=== PATIENT | male | born 1980 | race Caucasian/White ===

== ENCOUNTER 2020-04-14 17:33 | Inpatient (IN) ==
[2020-04-14 18:04] LABS: Bilirubin,Urine Negative (Negative); Blood,Urine Negative (Negative); Clarity,Urine Clear (Clear); Color,Urine Light-Yellow (Yellow); Glucose,Urine (UA) Normal (Normal); Ketones,Urine Negative (Negative); Leukocyte Esterase,Urine Negative (Negative); Nitrite,Urine Negative (Negative); PH,Urine 6.5 pH Units (5.0-8.0); Protein,Urine Negative (Neg-Trace); Urobilinogen,Urine Normal (Normal)
[2020-04-14 18:08] LABS: Basophils % 0.3 %; Eosinophils # 0.1 K/mcL (0.0-0.6); Eosinophils % 0.4 %; Hematocrit 50.3 % (37.5-50.1); Immature Granulocytes % 0.2 % (0-4); Lymphocytes # 2.1 K/mcL (0.6-4.6); Lymphocytes % 14.9 %; Mean Corpuscular HGB Conc 33.8 g/dL (31.6-35.5); Mean Corpuscular Hemoglobin 31.6 pg (28.0-33.3); Mean Corpuscular Volume 93.5 fL (83.0-100.0); Mean Platelet Volume 9.5 fL (9.4-12.4); Monocytes % 6.9 %; Neutrophils # 10.9 K/mcL (1.6-8.9); Platelet Count 190 K/mcL (140-400); Red Blood Count 5.38 M/mcL (4.19-5.50); Red Cell Distribution Width 12.5 % (11.5-14.5); Segmented Neutrophils % 77.3 %; White Blood Count 14.1 K/mcL (4.3-11.1)
[2020-04-14] MEDS ORDERED: Piperacillin/Tazobactam 3.375 GM in 0.9 % Sodium Chloride Mini Bag 100 ML IVPB ONE (18:25)
[2020-04-14 18:27] LABS: BUN/Creatinine Ratio 11 (6-26); Blood Urea Nitrogen 9 mg/dL (6-20); Calcium 9.3 mg/dL (8.6-10.3); Carbon Dioxide 27 mEq/L (23-29); Chloride 102 mEq/L (98-107); Glucose 114 mg/dL (70-105); Osmolality,Calculated 280 (280-300); Potassium 3.9 mEq/L (3.5-5.1); Sodium 135 mEq/L (136-145); eGFR For African Americans > 60 (> 60); eGFR For Non-African Americans > 60 (> 60)
[2020-04-14] MEDS ORDERED: Ketorolac 30 MG/ML VIAL IVP ONE (19:20)
[2020-04-14] MEDS ORDERED: Ondansetron 4 MG/2 ML VIAL IVP PRN (21:18)
[2020-04-14] MEDS ORDERED: Naloxone 0.4 MG/ML INJ IVP PRN (21:18)
[2020-04-14] MEDS: Ringers Solution, Lactated 1,000 ML IVC SCH (22:50)
[2020-04-14] MEDS: risperiDONE 0.25 MG TABLET PO SCH (23:03)
[2020-04-14] MEDS: Mirtazapine 15 MG TABLET PO SCH (23:04)
[2020-04-14] MEDS ORDERED: Acetaminophen IV 1,000 MG/100 ML INFUS..BTL IVPB PRN (23:51)
[2020-04-14] MEDS ORDERED: Ketorolac 30 MG/ML VIAL IVP PRN (23:51)
[2020-04-15] MEDS: Piperacillin/Tazobactam 3.375 GM in 0.9 % Sodium Chloride Mini Bag 100 ML IVPB SCH ×4 (01:03→23:32)
[2020-04-15 01:26] LABS: Basophils % 0.3 %; Eosinophils # 0.1 K/mcL (0.0-0.6); Eosinophils % 0.4 %; Hematocrit 48.3 % (37.5-50.1); Hemoglobin 16.3 g/dL (12.9-16.9); Immature Granulocytes % 0.3 % (0-4); Lymphocytes % 17.9 %; Mean Corpuscular HGB Conc 33.7 g/dL (31.6-35.5); Mean Corpuscular Hemoglobin 31.6 pg (28.0-33.3); Mean Corpuscular Volume 93.6 fL (83.0-100.0); Mean Platelet Volume 9.8 fL (9.4-12.4); Monocytes # 0.9 K/mcL (0.0-1.3); Monocytes % 7.8 %; Neutrophils # 8.3 K/mcL (1.6-8.9); Platelet Count 157 K/mcL (140-400); Red Blood Count 5.16 M/mcL (4.19-5.50); Red Cell Distribution Width 12.2 % (11.5-14.5); Segmented Neutrophils % 73.3 %; White Blood Count 11.3 K/mcL (4.3-11.1)
[2020-04-15 01:28] LABS: INR 1.2; Prothrombin Time 13.5 Seconds (9.4-12.1)
[2020-04-15 01:46] LABS: Alanine Aminotransferase 27 Units/L (7-52); Albumin 3.9 g/dL (3.5-5.7); Albumin/Globulin Ratio 1.2 (1.1-2.2); Alkaline Phosphatase 37 Units/L (34-104); Aspartate Amino Transferase 14 Units/L (13-39); BUN/Creatinine Ratio 11 (6-26); Bilirubin,Total 0.8 mg/dL (0.3-1.0); Blood Urea Nitrogen 10 mg/dL (6-20); Calcium 8.7 mg/dL (8.6-10.3); Carbon Dioxide 27 mEq/L (23-29); Chloride 103 mEq/L (98-107); Globulin 3.3 g/dL (2.4-3.5); Glucose 103 mg/dL (70-105); Magnesium 1.9 mg/dL (1.6-2.6); Osmolality,Calculated 285 (280-300); Potassium 3.8 mEq/L (3.5-5.1); Sodium 138 mEq/L (136-145); Total Protein 7.2 g/dL (6.4-8.9); eGFR For African Americans > 60 (> 60); eGFR For Non-African Americans > 60 (> 60)
[2020-04-15] MEDS ORDERED: *HR* Dextrose 50 % in Water (Vial) 50 ML VIAL IVP PRN (08:13)
[2020-04-15] MEDS ORDERED: Dextrose Gel 15 GM/37.5 ML TUBE PO PRN ×2 (08:13)
[2020-04-15] MEDS ORDERED: D5% in Water 1,000 ML IVC PRN (08:13)
[2020-04-15] MEDS: Ringers Solution, Lactated 1,000 ML IVC SCH ×3 (10:54→23:33)
[2020-04-15] MEDS: Insulin LISPRO 300 UNITS/3 ML VIAL SQ SCH ×3 (11:40→23:33)
[2020-04-15] MEDS: *HR* Heparin 5,000 UNIT/ML VIAL SQ SCH ×2 (15:39→21:03)
[2020-04-15] MEDS ORDERED: hydrOXYzine pamoate 25 MG CAPSULE PO PRN (17:40)
[2020-04-15] MEDS: risperiDONE 0.25 MG TABLET PO SCH (21:02)
[2020-04-15] MEDS: Mirtazapine 15 MG TABLET PO SCH (21:02)
[2020-04-16 05:14] LABS: Basophils % 0.4 %; Eosinophils # 0.2 K/mcL (0.0-0.6); Eosinophils % 2.3 %; Hematocrit 45.8 % (37.5-50.1); Hemoglobin 14.8 g/dL (12.9-16.9); Immature Granulocytes % 0.3 % (0-4); Lymphocytes # 2.1 K/mcL (0.6-4.6); Lymphocytes % 26.3 %; Mean Corpuscular HGB Conc 32.3 g/dL (31.6-35.5); Mean Corpuscular Hemoglobin 30.1 pg (28.0-33.3); Mean Corpuscular Volume 93.3 fL (83.0-100.0); Mean Platelet Volume 9.7 fL (9.4-12.4); Monocytes # 0.6 K/mcL (0.0-1.3); Monocytes % 7.9 %; Platelet Count 166 K/mcL (140-400); Red Blood Count 4.91 M/mcL (4.19-5.50); Red Cell Distribution Width 12.4 % (11.5-14.5); Segmented Neutrophils % 62.8 %
[2020-04-16] MEDS: Insulin LISPRO 300 UNITS/3 ML VIAL SQ SCH (05:17)
[2020-04-16] MEDS: *HR* Heparin 5,000 UNIT/ML VIAL SQ SCH ×3 (05:18→21:28)
[2020-04-16 05:30] LABS: BUN/Creatinine Ratio 13 (6-26); Blood Urea Nitrogen 11 mg/dL (6-20); Calcium 8.5 mg/dL (8.6-10.3); Carbon Dioxide 23 mEq/L (23-29); Chloride 107 mEq/L (98-107); Glucose 84 mg/dL (70-105); Osmolality,Calculated 285 (280-300); Phosphorous 2.5 mg/dL (2.7-4.5); Sodium 138 mEq/L (136-145); eGFR For African Americans > 60 (> 60); eGFR For Non-African Americans > 60 (> 60)
[2020-04-16] MEDS ORDERED: FLUoxetine 20 MG CAPSULE PO SCH (09:00)
[2020-04-16] MEDS: Piperacillin/Tazobactam 3.375 GM in 0.9 % Sodium Chloride Mini Bag 100 ML IVPB SCH ×2 (11:02→17:48)
[2020-04-16] MEDS ORDERED: Nicotine 21 MG PATCH.TD24 TD SCH (13:00)
[2020-04-16] MEDS ORDERED: Morphine Sulfate 2 MG/ML SYRINGE IVP ONE (20:09)
[2020-04-16] MEDS: Mirtazapine 15 MG TABLET PO SCH (20:58)
[2020-04-16] MEDS: risperiDONE 0.25 MG TABLET PO SCH (20:58)
[2020-04-16] MEDS ORDERED: *HR* OxyCODONE Immed Rel 5 MG TABLET PO PRN ×2 (22:25→22:57)
[2020-04-17] MEDS ORDERED: Morphine Sulfate 2 MG/ML SYRINGE IVP ONE (00:18)
[2020-04-17] MEDS ORDERED: 0.9 % Sodium Chloride 1,000 ML IVC SCH (00:45)
[2020-04-17] MEDS ORDERED: CefOXitin 1,000 MG VIAL ONE (01:09)
[2020-04-17] MEDS: Piperacillin/Tazobactam 3.375 GM in 0.9 % Sodium Chloride Mini Bag 100 ML IVPB SCH ×4 (01:23→23:30)
[2020-04-17] MEDS ORDERED: Lidocaine -MPF 2% 2 ML VIAL ONE (01:24)
[2020-04-17] MEDS ORDERED: *HR* FentaNYL (PF) 100 MCG/2 ML VIAL ONE (01:24)
[2020-04-17] MEDS ORDERED: *HR* Succinylcholine 200 MG/10 ML VIAL IVP ONE (01:24)
[2020-04-17] MEDS ORDERED: Lidocaine -MPF 4% 5 ML AMPUL ONE (01:24)
[2020-04-17] MEDS ORDERED: *HR* Rocuronium Bromide 50 MG/5 ML VIAL ONE (01:24)
[2020-04-17] MEDS ORDERED: *HR* Propofol 200 MG/20 ML VIAL IVP ONE (01:25)
[2020-04-17] MEDS ORDERED: *HR* Midazolam HCl 2 MG/2 ML VIAL ONE (01:25)
[2020-04-17] MEDS ORDERED: Dexamethasone 4 MG/ML VIAL ONE (01:29)
[2020-04-17] MEDS ORDERED: Ondansetron 4 MG/2 ML VIAL ONE (01:29)
[2020-04-17] MEDS ORDERED: *HR* Magnesium Sulfate 1 GM/2 ML VIAL ONE (01:30)
[2020-04-17] MEDS ORDERED: Acetaminophen IV 1,000 MG/100 ML INFUS..BTL IVPB ONE (01:32)
[2020-04-17] MEDS ORDERED: Famotidine 20 MG/2 ML VIAL ONE (01:56)
[2020-04-17] MEDS ORDERED: *HR* PHENYLEPHRINE 1,000 MCG/10 ML SYRINGE IVP ONE (02:25)
[2020-04-17] MEDS ORDERED: *HR* HYDROMORPHONE 2 MG/ML VIAL ONE (02:30)
[2020-04-17] MEDS ORDERED: *HR* Labetalol 20 MG/4 ML SYRINGE IVP PRN (02:52)
[2020-04-17] MEDS ORDERED: *HR* Promethazine 25 MG/ML VIAL IVP PRN (02:52)
[2020-04-17 02:54] LABS: Adenovirus Not Detected (Not Detect); Bordetella Pertussis Not Detected (Not Detect); Chlamydophila pneumoniae Not Detected (Not Detect); Coronavirus 229E Not Detected (Not Detect); Coronavirus HKU1 Not Detected (Not Detect); Coronavirus NL63 Not Detected (Not Detect); Coronavirus OC43 Not Detected (Not Detect); Human Metapneumovirus Not Detected (Not Detect); Human Rhinovirus/Enterovirus Not Detected (Not Detect); Influenza A Subtype 2009 H1 Not Detected (Not Detect); Influenza B Not Detected (Not Detect); Mycoplasma pneumoniae Not Detected (Not Detect); Parainfluenza Virus 1 Not Detected (Not Detect); Parainfluenza Virus 2 Not Detected (Not Detect); Parainfluenza Virus 3 Not Detected (Not Detect); Parainfluenza Virus 4 Not Detected (Not Detect); Respiratory Syncytial Virus Not Detected (Not Detect); SARS-CoV-2 Not Detected (Not Detect)
[2020-04-17] MEDS ORDERED: Ketorolac 30 MG/ML VIAL ONE (03:08)
[2020-04-17] MEDS ORDERED: Neostigmine Methylsulfate 3 MG/3 ML SYRINGE ONE (03:09)
[2020-04-17] MEDS: *HR* HYDROmorphone (PF) 1 MG/ML SYRINGE IVP PRN ×4 (04:18→05:36)
[2020-04-17] MEDS: *HR* Heparin 5,000 UNIT/ML VIAL SQ SCH ×3 (05:59→21:12)
[2020-04-17] MEDS ORDERED: Morphine Sulfate 2 MG/ML SYRINGE IVP PRN (06:51)
[2020-04-17] MEDS ORDERED: *HR* Dextrose 50 % in Water (Vial) 50 ML VIAL IVP PRN (06:51)
[2020-04-17] MEDS ORDERED: Dextrose Gel 15 GM/37.5 ML TUBE PO PRN ×2 (06:51)
[2020-04-17] MEDS ORDERED: Ondansetron 4 MG/2 ML VIAL IVP PRN (06:51)
[2020-04-17] MEDS ORDERED: D5% in Water 1,000 ML IVC PRN (06:51)
[2020-04-17] MEDS: 0.9 % Sodium Chloride 1,000 ML IVC SCH ×2 (07:00→21:06)
[2020-04-17] MEDS: Nicotine 21 MG PATCH.TD24 TD SCH (08:32)
[2020-04-17 09:02] LABS: Hematocrit 45.2 % (37.5-50.1); Hemoglobin 14.8 g/dL (12.9-16.9); Mean Corpuscular HGB Conc 32.7 g/dL (31.6-35.5); Mean Corpuscular Hemoglobin 30.3 pg (28.0-33.3); Mean Corpuscular Volume 92.6 fL (83.0-100.0); Mean Platelet Volume 9.4 fL (9.4-12.4); Platelet Count 211 K/mcL (140-400); Red Blood Count 4.88 M/mcL (4.19-5.50); Red Cell Distribution Width 12.7 % (11.5-14.5); White Blood Count 8.1 K/mcL (4.3-11.1)
[2020-04-17 09:17] LABS: BUN/Creatinine Ratio 16 (6-26); Blood Urea Nitrogen 18 mg/dL (6-20); Calcium 8.4 mg/dL (8.6-10.3); Carbon Dioxide 26 mEq/L (23-29); Chloride 105 mEq/L (98-107); Glucose 149 mg/dL (70-105); Magnesium 2.1 mg/dL (1.6-2.6); Osmolality,Calculated 291 (280-300); Phosphorous 4.5 mg/dL (2.7-4.5); Potassium 4.7 mEq/L (3.5-5.1); Sodium 138 mEq/L (136-145); eGFR For African Americans > 60 (> 60); eGFR For Non-African Americans > 60 (> 60)
[2020-04-17 09:30] LABS: Lymphocytes # 0.8 K/mcL (0.6-4.6); Neutrophils # 6.3 K/mcL (1.6-8.9); Platelet Estimate Normal (Normal)
[2020-04-17] MEDS: Ketorolac 30 MG/ML VIAL IVP PRN ×2 (11:36→18:18)
[2020-04-17] MEDS: Pantoprazole 40 MG VIAL IVP SCH (11:36)
[2020-04-17] MEDS ORDERED: *HR* LORazepam 2 MG/ML VIAL IVP ONE (21:36)
[2020-04-18 03:15] LABS: BUN/Creatinine Ratio 19 (6-26); Blood Urea Nitrogen 19 mg/dL (6-20); Calcium 8.2 mg/dL (8.6-10.3); Carbon Dioxide 29 mEq/L (23-29); Chloride 107 mEq/L (98-107); Glucose 121 mg/dL (70-105); Magnesium 2.3 mg/dL (1.6-2.6); Osmolality,Calculated 296 (280-300); Potassium 4.4 mEq/L (3.5-5.1); Sodium 141 mEq/L (136-145); eGFR For African Americans > 60 (> 60); eGFR For Non-African Americans > 60 (> 60)
[2020-04-18] MEDS: *HR* Heparin 5,000 UNIT/ML VIAL SQ SCH ×3 (05:03→20:53)
[2020-04-18] MEDS: Ketorolac 30 MG/ML VIAL IVP PRN ×3 (08:27→22:33)
[2020-04-18] MEDS: Pantoprazole 40 MG VIAL IVP SCH (09:15)
[2020-04-18] MEDS: Nicotine 21 MG PATCH.TD24 TD SCH (09:15)
[2020-04-18] MEDS: Piperacillin/Tazobactam 3.375 GM in 0.9 % Sodium Chloride Mini Bag 100 ML IVPB SCH ×3 (09:15→23:40)
[2020-04-18] MEDS: 0.9 % Sodium Chloride 1,000 ML IVC SCH (09:16)
[2020-04-18] MEDS ORDERED: hydrOXYzine pamoate 25 MG CAPSULE PO PRN (14:03)
[2020-04-18] MEDS: risperiDONE 0.25 MG TABLET PO SCH (20:53)
[2020-04-18] MEDS: Mirtazapine 15 MG TABLET PO SCH (20:53)
[2020-04-19] MEDS: *HR* Heparin 5,000 UNIT/ML VIAL SQ SCH ×3 (04:38→21:52)
[2020-04-19] MEDS: Nicotine 21 MG PATCH.TD24 TD SCH (08:10)
[2020-04-19] MEDS: Piperacillin/Tazobactam 3.375 GM in 0.9 % Sodium Chloride Mini Bag 100 ML IVPB SCH ×3 (08:11→22:55)
[2020-04-19] MEDS: Pantoprazole 40 MG VIAL IVP SCH (08:11)
[2020-04-19] MEDS: FLUoxetine 20 MG CAPSULE PO SCH (08:11)
[2020-04-19 08:19] LABS: Hematocrit 40.4 % (37.5-50.1); Hemoglobin 13.4 g/dL (12.9-16.9); Mean Corpuscular HGB Conc 33.2 g/dL (31.6-35.5); Mean Corpuscular Hemoglobin 30.5 pg (28.0-33.3); Mean Corpuscular Volume 91.8 fL (83.0-100.0); Mean Platelet Volume 9.2 fL (9.4-12.4); Platelet Count 216 K/mcL (140-400); Red Cell Distribution Width 12.9 % (11.5-14.5); White Blood Count 10.3 K/mcL (4.3-11.1)
[2020-04-19 08:35] LABS: BUN/Creatinine Ratio 19 (6-26); Blood Urea Nitrogen 15 mg/dL (6-20); Calcium 7.8 mg/dL (8.6-10.3); Carbon Dioxide 24 mEq/L (23-29); Chloride 106 mEq/L (98-107); Glucose 101 mg/dL (70-105); Magnesium 1.9 mg/dL (1.6-2.6); Osmolality,Calculated 289 (280-300); Phosphorous 1.6 mg/dL (2.7-4.5); Potassium 3.7 mEq/L (3.5-5.1); Sodium 139 mEq/L (136-145); eGFR For African Americans > 60 (> 60); eGFR For Non-African Americans > 60 (> 60)
[2020-04-19 08:42] LABS: Eosinophils # 0.2 K/mcL (0.0-0.6); Monocytes # 0.4 K/mcL (0.0-1.3); Neutrophils # 8.7 K/mcL (1.6-8.9)
[2020-04-19 08:43] LABS: Platelet Estimate Normal (Normal)
[2020-04-19] MEDS: Ketorolac 30 MG/ML VIAL IVP PRN ×3 (09:54→22:54)
[2020-04-19] MEDS ORDERED: *HR* LORazepam 2 MG/ML VIAL IVP PRN (15:34)
[2020-04-19] MEDS: Mirtazapine 15 MG TABLET PO SCH (21:46)
[2020-04-19] MEDS: risperiDONE 0.25 MG TABLET PO SCH (21:46)
[2020-04-20] MEDS: *HR* Heparin 5,000 UNIT/ML VIAL SQ SCH ×3 (05:32→21:50)
[2020-04-20 06:02] LABS: Magnesium 2.1 mg/dL (1.6-2.6); Phosphorous 2.9 mg/dL (2.7-4.5)
[2020-04-20] MEDS: Piperacillin/Tazobactam 3.375 GM in 0.9 % Sodium Chloride Mini Bag 100 ML IVPB SCH ×2 (08:06→17:01)
[2020-04-20] MEDS: FLUoxetine 20 MG CAPSULE PO SCH (08:06)
[2020-04-20] MEDS: Nicotine 21 MG PATCH.TD24 TD SCH (08:07)
[2020-04-20] MEDS: polyethylene glycoL 3350 17 GM POWD.PACK PO SCH (10:44)
[2020-04-20] MEDS ORDERED: Acetaminophen 325 MG TABLET PO PRN (16:42)
[2020-04-20] MEDS: risperiDONE 0.25 MG TABLET PO SCH (21:49)
[2020-04-20] MEDS: Mirtazapine 15 MG TABLET PO SCH (21:50)
[2020-04-21] MEDS: Piperacillin/Tazobactam 3.375 GM in 0.9 % Sodium Chloride Mini Bag 100 ML IVPB SCH ×3 (00:14→15:57)
[2020-04-21 05:46] LABS: BUN/Creatinine Ratio 23 (6-26); Blood Urea Nitrogen 16 mg/dL (6-20); Carbon Dioxide 25 mEq/L (23-29); Chloride 107 mEq/L (98-107); Glucose 84 mg/dL (70-105); Osmolality,Calculated 292 (280-300); Potassium 4.1 mEq/L (3.5-5.1); Sodium 141 mEq/L (136-145); eGFR For African Americans > 60 (> 60); eGFR For Non-African Americans > 60 (> 60)
[2020-04-21] MEDS: *HR* Heparin 5,000 UNIT/ML VIAL SQ SCH ×3 (09:42→20:10)
[2020-04-21] MEDS: Nicotine 21 MG PATCH.TD24 TD SCH ×3 (09:45→12:48)
[2020-04-21] MEDS: FLUoxetine 20 MG CAPSULE PO SCH (09:45)
[2020-04-21] MEDS: polyethylene glycoL 3350 17 GM POWD.PACK PO SCH (09:47)
[2020-04-21] MEDS: risperiDONE 0.25 MG TABLET PO SCH (20:08)
[2020-04-21] MEDS: Mirtazapine 15 MG TABLET PO SCH (20:09)
[2020-04-22] MEDS: Piperacillin/Tazobactam 3.375 GM in 0.9 % Sodium Chloride Mini Bag 100 ML IVPB SCH ×2 (00:13→08:33)
[2020-04-22 05:04] LABS: Hematocrit 41.2 % (37.5-50.1); Hemoglobin 13.8 g/dL (12.9-16.9); Mean Corpuscular HGB Conc 33.5 g/dL (31.6-35.5); Mean Corpuscular Volume 92.6 fL (83.0-100.0); Mean Platelet Volume 8.5 fL (9.4-12.4); Platelet Count 261 K/mcL (140-400); Red Blood Count 4.45 M/mcL (4.19-5.50); Red Cell Distribution Width 13.5 % (11.5-14.5); White Blood Count 11.7 K/mcL (4.3-11.1)
[2020-04-22 05:23] LABS: BUN/Creatinine Ratio 18 (6-26); Blood Urea Nitrogen 13 mg/dL (6-20); Calcium 7.9 mg/dL (8.6-10.3); Carbon Dioxide 26 mEq/L (23-29); Chloride 103 mEq/L (98-107); Glucose 97 mg/dL (70-105); Osmolality,Calculated 282 (280-300); Sodium 136 mEq/L (136-145); eGFR For African Americans > 60 (> 60); eGFR For Non-African Americans > 60 (> 60)
[2020-04-22] MEDS: *HR* Heparin 5,000 UNIT/ML VIAL SQ SCH ×3 (05:32→23:15)
[2020-04-22] MEDS: polyethylene glycoL 3350 17 GM POWD.PACK PO SCH (08:32)
[2020-04-22] MEDS: FLUoxetine 20 MG CAPSULE PO SCH (08:33)
[2020-04-22] MEDS: Nicotine 21 MG PATCH.TD24 TD SCH (08:34)
[2020-04-22] MEDS: risperiDONE 0.25 MG TABLET PO SCH (20:33)
[2020-04-22] MEDS: Mirtazapine 15 MG TABLET PO SCH (20:34)
[2020-04-22] MEDS ORDERED: Simethicone 80 MG TAB.CHEW PO PRN (20:46)
[2020-04-23] MEDS: *HR* Heparin 5,000 UNIT/ML VIAL SQ SCH ×2 (06:19→15:26)
[2020-04-23 07:16] VITALS: BP 129/80
[2020-04-23 07:49] LABS: Hematocrit 43.1 % (37.5-50.1); Hemoglobin 14.4 g/dL (12.9-16.9); Mean Corpuscular HGB Conc 33.4 g/dL (31.6-35.5); Mean Corpuscular Volume 92.9 fL (83.0-100.0); Mean Platelet Volume 8.8 fL (9.4-12.4); Platelet Count 302 K/mcL (140-400); Red Blood Count 4.64 M/mcL (4.19-5.50); Red Cell Distribution Width 13.5 % (11.5-14.5); White Blood Count 11.3 K/mcL (4.3-11.1)
[2020-04-23] MEDS: FLUoxetine 20 MG CAPSULE PO SCH (08:40)
[2020-04-23] MEDS: Nicotine 21 MG PATCH.TD24 TD SCH (08:40)
[2020-04-23] MEDS: polyethylene glycoL 3350 17 GM POWD.PACK PO SCH (08:41)
[2020-04-23 09:03] LABS: BUN/Creatinine Ratio 18 (6-26); Blood Urea Nitrogen 12 mg/dL (6-20); Calcium 8.4 mg/dL (8.6-10.3); Carbon Dioxide 24 mEq/L (23-29); Chloride 101 mEq/L (98-107); Glucose 97 mg/dL (70-105); Osmolality,Calculated 280 (280-300); Sodium 135 mEq/L (136-145); eGFR For African Americans > 60 (> 60); eGFR For Non-African Americans > 60 (> 60)
== END 2020-04-23 17:59 | DRG 710 ==
LOC: EMEROOARM 17:33 → 3ANU 17:33 → SUATTDRO 19:27 → 3ANU 20:48 → SUATTDRO 04-15 11:12
PROVIDERS: ADMIT Internal Medicine; ATTEND Family Medicine

== ENCOUNTER 2020-08-31 11:19 | Inpatient (IN) ==
[2020-08-31] MEDS ORDERED: cefOXitin 2,000 MG in Water for inj. (sterile) 20 ML IVP ONE (11:37)
[2020-08-31] MEDS ORDERED: *HR* FentaNYL (PF) 100 MCG/2 ML VIAL ONE (11:43)
[2020-08-31] MEDS ORDERED: *HR* Propofol 200 MG/20 ML VIAL IVP ONE (11:43)
[2020-08-31] MEDS ORDERED: *HR* Midazolam HCl 2 MG/2 ML VIAL ONE (11:43)
[2020-08-31] MEDS ORDERED: Lidocaine -MPF 2% 2 ML VIAL ONE ×2 (11:45→15:06)
[2020-08-31] MEDS ORDERED: Dexamethasone 4 MG/ML VIAL ONE (11:45)
[2020-08-31] MEDS ORDERED: *HR* Rocuronium Bromide 50 MG/5 ML VIAL ONE ×2 (11:45→13:41)
[2020-08-31] MEDS ORDERED: Ringers Solution, Lactated 1,000 ML IVC SCH ×2 (11:45→12:45)
[2020-08-31] MEDS ORDERED: Ondansetron 4 MG/2 ML VIAL ONE (11:45)
[2020-08-31] MEDS ORDERED: Ondansetron 4 MG/2 ML VIAL IVP PRN (12:34)
[2020-08-31] MEDS ORDERED: *HR* HYDROmorphone PF 0.5 MG/0.5 ML SYRINGE IVP PRN (12:34)
[2020-08-31] MEDS ORDERED: *HR* HYDROcodone/Acet 5/325 mg TABLET PO PRN (12:34)
[2020-08-31] MEDS ORDERED: Acetaminophen IV 1,000 MG/100 ML BAG IVPB ONE (12:36)
[2020-08-31] MEDS ORDERED: Bupivacaine 0.5%-Epi 1:200,000 50 ML VIAL ONE (12:38)
[2020-08-31] MEDS ORDERED: *HR* Magnesium Sulfate 1 GM/2 ML VIAL ONE (12:50)
[2020-08-31] MEDS ORDERED: *HR* HYDROMORPHONE 2 MG/ML VIAL ONE (13:54)
[2020-08-31] MEDS ORDERED: CefOXitin 2,000 MG VIAL ONE (16:41)
[2020-08-31] MEDS ORDERED: Sugammadex Sodium 200 MG/2 ML VIAL IV ONE (17:02)
[2020-08-31] MEDS ORDERED: hydrOXYzine pamoate 25 MG CAPSULE PO PRN (19:32)
[2020-08-31] MEDS ORDERED: *HR* HYDROmorphone 20 MG/20 ML PCA IVC PRN (20:00)
[2020-08-31] MEDS: Acetaminophen IV 1,000 MG/100 ML BAG IVPB SCH (20:47)
[2020-08-31] MEDS: Mirtazapine 15 MG TABLET PO SCH (20:48)
[2020-08-31] MEDS: 0.9 % Sodium Chloride 1,000 ML IVC SCH (20:49)
[2020-08-31] MEDS: Ketorolac 30 MG/ML VIAL IM SCH (20:49)
[2020-08-31] MEDS: risperiDONE 0.25 MG TABLET PO SCH (20:49)
[2020-08-31] MEDS: *HR* Heparin 5,000 UNIT/ML VIAL SQ SCH (21:04)
[2020-09-01] MEDS: cefOXitin 1,000 MG in Water for inj. (sterile) 10 ML IVP SCH ×3 (01:57→15:46)
[2020-09-01] MEDS: Acetaminophen IV 1,000 MG/100 ML BAG IVPB SCH ×4 (01:57→20:14)
[2020-09-01] MEDS: Ketorolac 30 MG/ML VIAL IM SCH ×3 (01:58→11:33)
[2020-09-01 04:44] LABS: BUN/Creatinine Ratio 13 (6-26); Blood Urea Nitrogen 16 mg/dL (6-20); Calcium 8.3 mg/dL (8.6-10.3); Carbon Dioxide 26 mEq/L (23-29); Chloride 103 mEq/L (98-107); Glucose 174 mg/dL (70-105); Osmolality,Calculated 283 (280-300); Potassium 5.1 mEq/L (3.5-5.1); Sodium 134 mEq/L (136-145); eGFR For African Americans > 60 (> 60); eGFR For Non-African Americans > 60 (> 60)
[2020-09-01] MEDS: 0.9 % Sodium Chloride 1,000 ML IVC SCH (08:02)
[2020-09-01] MEDS: *HR* Heparin 5,000 UNIT/ML VIAL SQ SCH ×2 (08:08→17:33)
[2020-09-01] MEDS: FLUoxetine 20 MG CAPSULE PO SCH (08:52)
[2020-09-01] MEDS ORDERED: Morphine Sulfate Oral CONC 10 MG/0.5 ML ORAL.SYG SL PRN (10:50)
[2020-09-01] MEDS: Ketorolac 30 MG/ML VIAL IVP SCH ×3 (12:08→23:22)
[2020-09-01] MEDS: *HR* OxyCODONE Immed Rel 5 MG TABLET PO PRN (16:02)
[2020-09-01] MEDS: risperiDONE 0.25 MG TABLET PO SCH (20:13)
[2020-09-01] MEDS: Mirtazapine 15 MG TABLET PO SCH (20:14)
[2020-09-02] MEDS: Acetaminophen IV 1,000 MG/100 ML BAG IVPB SCH ×3 (02:04→16:03)
[2020-09-02] MEDS: *HR* Heparin 5,000 UNIT/ML VIAL SQ SCH ×2 (05:42→16:52)
[2020-09-02] MEDS: Ketorolac 30 MG/ML VIAL IVP SCH ×3 (05:42→16:51)
[2020-09-02] MEDS: FLUoxetine 20 MG CAPSULE PO SCH (07:59)
[2020-09-02] MEDS: *HR* OxyCODONE Immed Rel 5 MG TABLET PO PRN (13:29)
[2020-09-02 14:55] VITALS: BP 142/82
== END 2020-09-02 18:00 | disposition home or self-care (01) | DRG 223 ==
LOC: SAMDAY 11:19 → 3ANU 18:28
PROVIDERS: ADMIT Surgery; ATTEND Surgery